=== PATIENT | female | born 1975 | race Caucasian/White ===

== ENCOUNTER → 2023-09-09 08:22 | Outpatient (REF) | payer OTHER, SELFPAY | LOC: WDC 08:22 | PROVIDERS: ATTENDING PHYSICIAN Obstetrics & Gynecology Gynecology; FAMILY PHYSICIAN Internal Medicine | DX: Z12.31 Encounter for screening mammogram for malignant neoplasm of breast (principal) | CPT/HCPCS: 77063; 77067 ==

== ENCOUNTER → 2023-09-19 09:35 | Outpatient (REF) | payer OTHER, SELFPAY | LOC: WDC 09:35 | PROVIDERS: ATTENDING PHYSICIAN Obstetrics & Gynecology Gynecology; FAMILY PHYSICIAN Internal Medicine | DX: R92.8 Other abnormal and inconclusive findings on diagnostic imaging of breast (principal) | CPT/HCPCS: 76642 ==

== ENCOUNTER → 2024-04-22 08:02 | Outpatient (REF) | payer OTHER, SELFPAY | LOC: WDC 08:02 | PROVIDERS: ATTENDING PHYSICIAN Internal Medicine | DX: R92.8 Other abnormal and inconclusive findings on diagnostic imaging of breast (principal) | CPT/HCPCS: 76642 ==

== ENCOUNTER → 2025-02-03 11:02 | Outpatient (REF) | payer OTHER, SELFPAY | LOC: WDC 11:02 | PROVIDERS: ATTENDING PHYSICIAN Nurse Practitioner Adult Health; FAMILY PHYSICIAN Internal Medicine | DX: N64.52 Nipple discharge (principal) | CPT/HCPCS: 76642; 77062; 77066 ==

== ENCOUNTER → 2025-03-16 16:19 | Outpatient (REF) | payer OTHER, SELFPAY | LOC: MRI 3T 16:19 | PROVIDERS: ATTENDING PHYSICIAN Surgery; FAMILY PHYSICIAN Internal Medicine | DX: N64.52 Nipple discharge (principal) | CPT/HCPCS: 77049; A9585 ==

== ENCOUNTER → 2025-03-24 15:05 | Outpatient (REF) | payer OTHER, SELFPAY | LOC: WDC 15:05 | PROVIDERS: ATTENDING PHYSICIAN Surgery; FAMILY PHYSICIAN Internal Medicine | DX: R92.8 Other abnormal and inconclusive findings on diagnostic imaging of breast (principal) | CPT/HCPCS: 76642 ==

== ENCOUNTER → 2025-04-01 09:59 | Outpatient (REF) | payer OTHER, SELFPAY ==
--- NOTE | 2025-04-04 08:26 | OID.BR.INTR ---
[facility] Breast Navigator - Initial
- -
Did not meet patient at time of biopsy. Will follow up per protocol.
== END ==
LOC: WDC 09:59
PROVIDERS: ATTENDING PHYSICIAN Surgery
DX: N63.11 Unspecified lump in the right breast, upper outer quadrant (principal)
CPT/HCPCS: 19083; 19084; 88305; A4648

== ENCOUNTER → 2025-06-16 06:38 | Outpatient (REF) | payer OTHER, SELFPAY | LOC: WDC 06:38 | PROVIDERS: ATTENDING PHYSICIAN Surgery; FAMILY PHYSICIAN Internal Medicine | DX: D36.9 Benign neoplasm, unspecified site (principal) | CPT/HCPCS: 19281; A4648 ==

== ENCOUNTER 2025-06-17 06:10 | Day surgery (SDC) | payer OTHER, SELFPAY ==
[2025-06-03 09:55] LABS: Hematocrit 40.6 % (37.0-47.0); Hemoglobin 12.3 g/dL (12.0-16.0); Mean Corp Hgb Conc. 30.3 g/dL (33.0-37.0); Mean Corpuscular Volume 78.2 fL (81.0-99.0); Platelet Count 364 10^3/uL (130-400); Red Cell Dist. Width 14.8 % (11.5-14.5)
[2025-06-03 10:39] LABS: ALT (SGPT) 43 U/L (0-35); AST (SGOT) 31 U/L (14-36); Albumin 4.5 g/dl (3.5-5.0); Alkaline Phosphatase 88 U/L (38-126); Blood Urea Nitrogen 9 mg/dl (7-17); Calcium 9.3 mg/dl (8.4-10.2); Carbon Dioxide 29 mmol/L (22-30); Chloride 105 mmol/L (98-107); Glucose 93 mg/dl (70-99); Potassium 4.6 mmol/L (3.5-5.1); Sodium 142 mmol/L (135-145); Total Protein 7.3 g/dl (6.3-8.2); eGFR > 60.00
[2025-06-03 10:42] LABS: Prealbumin (Transthyretin) 21.9 mg/dl (17.6-36.0)
[2025-06-03 10:54] LABS: Vitamin D, 25-OH*** 26.8 ng/mL (30-80)
[2025-06-03 14:08] VITALS: BMI 36.4
[2025-06-17 12:34] VITALS: BMI 36.4
[2025-06-17 12:35] VITALS: BP 153/84
[2025-06-17] MEDS: TYLENOL 1000 MG PO ×4 (12:52)
[2025-06-17] MEDS: NORMOSOL-R/PLASMALYTE-A 1000 IV ×4 (12:53)
[2025-06-17 16:25] VITALS: BP 135/65
--- NOTE | 2025-06-17 16:26 | W.IMMPOSTOP ---
Surgical Immed Post Op Note
-
Primary Surgeon: Mc
Assisting Surgeon: None
Pre-op Diagnosis: Papilloma left breast
Post-op Diagnosis: Same
Procedure Performed: Localized lumpectomy right breast papilloma
Anesthesia Type: TIVA
Specimen / Cultures: Right papilloma
Estimated Blood Loss: 2cc
Complications: None
Operative Findings: Clip and reflector are in the specimen
--- NOTE | 2025-06-17 16:27 | OR.RPT ---
Operative Report
Operative Report
Date of procedure: 06/17/2025
Surgeon: Mc
Preoperative diagnosis: Papilloma right breast
Postoperative diagnosis: Same
Procedure localized lumpectomy papilloma right breast
Patient is a 50-year-old female who presented with pathologic right breast discharge. Workup revealed a mass in the right breast that was biopsied and was shown to be consistent with a benign papilloma. The patient did request excision. On the
day prior to the procedure the patient presented to the [facility]. A Nati wood fuel pelletizer reflector was placed at the biopsy site. On the day of surgery the patient presented to the same-day surgical services unit. She was prepped and she
verified site and procedure. DVT and antibiotic prophylaxis were provided.
The patient was taken to the operating room and in the supine position intravenous sedation was delivered. The right breast was prepped and draped in the usual sterile fashion. Appropriate timeout procedure was performed by all staff members. All
tissues were anesthetized with 1% lidocaine plain and a curvilinear incision was made overlying the area of highest external Nati signal. Dissection was carried down to the appropriate area using the cautery and a wide lumpectomy was performed.
Time out of body was noted and the specimen was oriented for the pathologist. Specimen radiography confirmed the presence of biopsy clip and reflector within it. Hemostasis was verified. Marcaine 0.5% plain was instilled into all tissues and the
wound was closed using simple interrupted 2-0 Polysorb on deep intermediate and subcutaneous tissue and skin was closed with a running subcuticular 4-0 Monocryl. Surgical glue and a sterile compressive dressing were applied. All sponge needle and
instrument counts were correct and the patient was transferred to the recovery room in stable condition
()
[2025-06-17 16:30] VITALS: BP 131/67
[2025-06-17 16:45] VITALS: BP 122/73
[2025-06-17 17:00] VITALS: BP 132/75
== END 2025-06-17 17:23 | disposition home or self-care (01) ==
LOC: SDS 06:10
PROVIDERS: ATTENDING PHYSICIAN Surgery; FAMILY PHYSICIAN Internal Medicine
DX: D24.1 Benign neoplasm of right breast (principal)
CPT/HCPCS: 19301; 36415; 76098; 80053; 82306; 84134; 85027; 88307; 93005